=== PATIENT | female | born 1955 | race Caucasian/White ===

== ENCOUNTER 2017-04-24 14:00 | Outpatient (CLI) | payer OTHER ==
--- NOTE | 2017-04-24 15:47 | XRAY Report ---
THREE-VIEW LEFT FOOT: 04/24/2017 CLINICAL INDICATION: Pain, swelling. FINDINGS: AP, lateral, oblique views of the left foot demonstrate a small avulsion from the base of the 5th metatarsal. Degenerative changes are present. Soft tissue swelling is seen. Plantar calcan eal spurring is noted. IMPRESSION: SMALL AVULSION FRACTURE FROM THE BASE OF THE 5TH METATARSAL. SOFT TISSUE SWELLING. JOB #: [id number] EXT JOB #:[id number]
== END 2017-04-24 14:01 | disposition home or self-care (01) ==
LOC: DI 14:00
PROVIDERS: ATTEND Podiatrist
DX: S92.352A Displaced fracture of fifth metatarsal bone, left foot, initial encounter for closed fracture (principal)

== ENCOUNTER 2019-04-29 22:16 | Emergency (ER) | payer OTHER ==
--- NOTE | 2019-04-29 22:28 | ED Physician Documentation ---
History of Present Illness - Stated complaint Stated Complaint: LEFT SWOLLEN CALF/ RED - History obtained from History obtained from: Patient - History of Present Illness Timing: Today Pain level now: 0 Improved by: no ameliorating factors Worsened by: no exacerbating factors - Additonal information Additional information: c/o atraumatic left leg swelling and erythema since this morning Review of Systems Constitutional: reports: Chills, Myalgias. denies: Fever, Sweats Musculoskeletal: reports: Extremity swelling (BLE swelling is chronic, but LLE is more swollen than baseline, and erythema is also new today). denies: Extremity pain PD PAST MEDICAL HISTORY - Past Medical History Past Medical History: Yes Cardiovascular: Hypertension, High cholesterol Endocrine/Autoimmune: Type 2 diabetes - Present Medications Home Medications: Ambulatory Orders Medication Instructions Recorded Confirmed Atorvastatin [Lipitor] 20 mg PO DAILY 04/29/19 04/29/19 Trospium Chloride [Trospium 60 mg PO DAILY 04/29/19 04/29/19 Chloride ER] hydroCHLOROthiazide 25 mg PO DAILY 04/29/19 04/29/19 [Hydrochlorothiazide] metFORMIN [Glucophage] 2,000 mg PO DAILY 04/29/19 04/29/19 Cephalexin [Keflex] 500 mg PO Q6H #28 capsule 04/30/19 Sulfamethox/Trimeth 800/160 1 each PO BID #14 tablet 04/30/19 [Bactrim Ds 800/160] - Allergies Allergies/Adverse Reactions: Allergies Allergy/AdvReac Type Severity Reaction Status Date / Time No Known Drug Allergies Allergy Verified 04/29/19 22:28 - Living Situation Living Arrangement: reports: At home PD ED PE NORMAL - Vitals Vital signs reviewed: Yes - General General: Alert and oriented X 3, No acute distress, Well developed/nourished - Respiratory Respiratory: No respiratory distress, Clear bilaterally PD ED PE EXPANDED - Extremities Extremities: Pedal edema bilateral (L>R), Other (left lower leg is erythematous and hot to touch) Results - Vitals Vitals: Vital Signs - 24 hr 04/29/19 04/30/19 22:21 00:43 Temperature 36.9 C 36.8 C Heart Rate 93 82 Respiratory 18 18 Rate Blood Pressure 179/94 H 152/82 H O2 Saturation 97 97 Oxygen O2 Source Room air - Rads (name of study) LLE US Radiology: Prelim report reviewed, See rad report PD MEDICAL DECISION MAKING - ED course Complexity details: reviewed results, re-evaluated patient, considered differential, d/w patient Departure - Departure Disposition: 01 Home, Self Care Clinical Impression: Cellulitis Condition: Good Instructions: ED Infec Skin Cellulitis Follow-Up: Lynda Hernandez MD [Primary Care Provider] - Prescriptions: Cephalexin [Keflex] 500 mg PO Q6H #28 capsule Sulfamethox/Trimeth 800/160 [Bactrim Ds 800/160] 1 each PO BID #14 tablet Discharge Date/Time: 04/30/19 00:48
--- NOTE | 2019-04-30 00:24 | Ultrasound Report ---
Reason: LLE swelling, erythema Procedure Date: 04/29/2019 Accession Number: [id number] / [id number] Procedure: US - Duplex Ext Veins Left CPT Code: FULL RESULT: EXAM: LEFT LOWER EXTREMITY VENOUS ULTRASOUND EXAM DATE: 04/29/2019 11:42 PM. CLINICAL HISTORY: LLE swelling, erythema. COMPARISON: None. TECHNIQUE: Real-time sonographic vascular imaging was performed by the food and beverage analyst through the lower extremity utilizing both color-flow and Doppler spectral analysis. Multiple telemarketing sales representative static images were saved for review. FINDINGS: Common Femoral Vein (CFV): Normal. CFV-GSV Junction: Normal. Profunda Femoral Vein (PFV): Normal. Femoral Vein (FV) Prox: Normal. Femoral Vein (FV) Mid: Normal. Femoral Vein (FV) Dist: Normal. Popliteal Vein: Normal. Posterior Tibial Veins: Normal. Peroneal Veins: Not seen due to body habitus and swelling. Contralateral Side CFV: Normal. Other: Lymph nodes in the proximal thigh measuring up to 3.7 x 1.1 cm. IMPRESSION: 1. No evidence for deep venous thrombosis. 2. Lymph nodes in the proximal thigh, likely reactive. [facility]
[2019-04-30] MEDS ORDERED: SULFAMETH/TRIMETH DS 800/160 MG TABLET PO STA (00:36)
[2019-04-30] MEDS ORDERED: cephALEXin 250 MG CAPSULE PO STA (00:36)
[2019-04-30 00:44] VITALS: BP 152/82
== END 2019-04-30 00:48 | disposition home or self-care (01) ==
LOC: ED 22:16
DX: L03.116 Cellulitis of left lower limb (principal); I10 Essential (primary) hypertension; E11.9 Type 2 diabetes mellitus without complications; Z79.84 Long term (current) use of oral hypoglycemic drugs
CPT/HCPCS: 93971; 99283; 99284; A9270

== ENCOUNTER 2019-09-01 16:28 | Outpatient (CLI) | payer OTHER ==
--- NOTE | 2019-09-01 19:40 | Ultrasound Report ---
Reason: LT LED SWELLING/REDNESS, POSITIVE D DIMER Procedure Date: 09/01/2019 Accession Number: [id number] / [id number] Procedure: US - Duplex Ext Veins Left CPT Code: Final Report FULL RESULT: EXAM: LEFT LOWER EXTREMITY VENOUS ULTRASOUND EXAM DATE: 09/01/2019 06:34 PM. CLINICAL HISTORY: Left leg SWELLING/REDNESS, POSITIVE D DIMER. COMPARISON: DUPLEX EXT VEINS LEFT 04/29/2019 11:03 PM. TECHNIQUE: Real-time sonographic vascular imaging was performed by the district attorney through the lower extremity utilizing both color-flow and Doppler spectral analysis. Multiple correspondence representative static images were saved for review. FINDINGS: Common Femoral Vein (CFV): Normal. CFV-GSV Junction: Normal. Profunda Femoral Vein (PFV): Normal. Femoral Vein (FV) Prox: Normal. Femoral Vein (FV) Mid: Normal. Femoral Vein (FV) Dist: Normal. Popliteal Vein: Normal. Posterior Tibial Veins: Suboptimally visualized. Peroneal Veins: Suboptimally visualized. Other: None. IMPRESSION: No evidence for deep venous thrombosis. [facility] The call report notification system was initiated by Dr. Daniel Cantu at 07:41 PM on 09/01/2019.
== END 2019-09-01 16:29 | disposition home or self-care (01) ==
LOC: DI 16:28
PROVIDERS: ATTEND Family Medicine
DX: M79.89 Other specified soft tissue disorders (principal); R79.89 Other specified abnormal findings of blood chemistry